=== PATIENT | female | born 1985 | race Two or more races ===

== ENCOUNTER 2022-11-12 17:01 | Emergency (ER) | payer OTHER ==
[2022-11-12 17:34] VITALS: BP 140/93
[2022-11-12] MEDS ORDERED: LIDOCAINE 1% HCL (LOCAL ANESTH.) INJ 20ML MDV ONE (17:40)
[2022-11-12] MEDS ORDERED: BACDST PO (17:59)
[2022-11-12] MEDS ORDERED: cefTRIAXone SOD 1,000 MG VL IM ONE (18:15)
== END 2022-11-12 18:22 | disposition home or self-care (01) ==
LOC: ER 17:01
DX: N76.0 Acute vaginitis (principal)
CPT/HCPCS: 56405; 87205; 96372; 99284; J0696; J2001